=== PATIENT | male | born 1980 ===

== ENCOUNTER 2024-03-05 14:38 | Emergency (ER) | payer SELFPAY ==
[2024-03-05] MEDS ORDERED: Sodium Chloride 0.9% 20 ML SDV IV PRN (14:41)
[2024-03-05] MEDS ORDERED: Sodium Chloride 0.9% 2.5 ML Syringe FLUSH PRN (14:41)
[2024-03-05] MEDS ORDERED: Sodium Chloride 0.9% 10 ML Syringe FLUSH PRN (14:41)
[2024-03-05] MEDS: Ondansetron 4 MG/2 ML SDV IVPUSH ONE ×2 (14:50)
[2024-03-05] MEDS: HYDROmorphone 0.5 MG/0.5 ML Syringe IVPUSH ONE ×3 (14:52→17:52)
[2024-03-05] MEDS: Diphtheria,Pertussis(Acell),Tetanus Vaccine 0.5 ML Syringe IM ONE (15:14)
[2024-03-05] MEDS: Acetaminophen 500 MG Tab PO ONE (15:15)
[2024-03-05] MEDS: ceFAZolin 1 GM in Sodium Chloride 0.9% 50 ML IV ONE (15:15)
[2024-03-05 15:30] LABS: BASOPHILS ABSOLUTE AUTO 0.02 K/uL (0.00-0.20); BASOPHILS PERCENT AUTO 0.2 % (0.0-1.0); EOSINOPHILS ABSOLUTE AUTO 0.07 K/uL (0.00-0.45); EOSINOPHILS PERCENT AUTO 0.6 % (0.0-6.0); HEMATOCRIT 41.1 % (42.0-52.0); HEMOGLOBIN 14.3 g/dL (14.0-18.0); IMMATURE GRAN ABSOLUTE AUTO 0.04 K/uL (0.00-0.05); IMMATURE GRAN PERCENT AUTO 0.3 % (0.0-0.4); LYMPHOCYTES ABSOLUTE AUTO 1.62 K/uL (1.00-4.80); LYMPHOCYTES PERCENT AUTO 13.8 % (24.0-44.0); MEAN CORPUSCULAR HEMOGLOBIN 32.3 pg (28.0-32.0); MEAN CORPUSCULAR HGB CONC 34.8 g/dL (32.0-36.0); MEAN CORPUSCULAR VOLUME 92.8 fL (83.0-99.0); MEAN PLATELET VOLUME 9.2 fL (9.4-12.4); MONOCYTES ABSOLUTE AUTO 0.66 K/uL (0.00-0.80); MONOCYTES PERCENT AUTO 5.6 % (0.0-8.0); NEUTROPHILS ABSOLUTE AUTO 9.36 K/uL (1.80-7.70); NEUTROPHILS PERCENT AUTO 79.5 % (41.0-71.0); PLATELET COUNT,PLT 271 K/uL (150-400); RED BLOOD CELL COUNT 4.43 M/uL (4.52-5.90); WHITE BLOOD CELL COUNT,WBC 11.77 K/uL (3.9-11.3)
[2024-03-05 15:43] LABS: INR 1.05 (0.86-1.11)
[2024-03-05 15:56] LABS: A/G RATIO 1.2 (0.9-1.6); ALBUMIN 3.8 g/dL (3.4-5.0); BILIRUBIN TOTAL 0.4 mg/dL (0.2-1.0); CALCIUM 8.9 mg/dL (8.5-10.1); CARBON DIOXIDE,CO2 32.2 mmol/L (21.0-32.0); CREATININE 1.1 mg/dL (0.8-1.3); EST CRCL DRUG DOSING (CG) 60.61 mL/min; POTASSIUM,K 4.3 mmol/L (3.5-5.1); PROTEIN TOTAL,TP 6.9 g/dL (6.4-8.2)
[2024-03-05] MEDS: Sodium Chloride 0.9% 1,000 ML IV SCH (16:19)
[2024-03-05] MEDS: Ketamine 500 mg/10 ML MDV IV PRN (16:24)
[2024-03-05] MEDS: fentaNYL 100 MCG/2 ML SDV IVPUSH PRN (16:30)
== END 2024-03-05 18:00 ==
LOC: MW.ED 14:38
DX: S82.451B Displaced comminuted fracture of shaft of right fibula, initial encounter for open fracture type I or II (principal); S82.851B Displaced trimalleolar fracture of right lower leg, initial encounter for open fracture type I or II; Z23 Encounter for immunization; W11.XXXA Fall on and from ladder, initial encounter; Y93.89 Activity, other specified
CPT/HCPCS: 27818; 36415; 73590; 73600; 73620; 80053; 85025; 85610; 90471; 90715; 96361; 96365; 96375; 96376; 99285; A9270; J0690; J1170; J2405; J3010; J3490; J7030

== ENCOUNTER 2024-07-09 18:10 | Emergency (ER) | payer SELFPAY | END 2024-07-09 21:14 | disposition home or self-care (01) | LOC: MW.ED 18:10 | DX: K02.9 Dental caries, unspecified (principal) | CPT/HCPCS: 99282 ==